=== PATIENT | male | born 1960 | race Caucasian/White ===

== ENCOUNTER 2017-10-29 07:26 | Day surgery (SDC) | payer OTHER ==
[2017-10-29] MEDS ORDERED: LIDOCAINE 4% SOLUTION 50 ML BTL (09:42)
[2017-10-29] MEDS ORDERED: FENTAnyl 50 MCG/ML VIAL (10:30)
[2017-10-29] MEDS ORDERED: MIDAZOLAM 1 MG/ML 2 ML INJ ×2 (10:30)
== END 2017-10-29 10:51 | disposition home or self-care (01) ==
LOC: GIL 07:26
DX: K92.1 Melena (principal); K29.50 Unspecified chronic gastritis without bleeding; I10 Essential (primary) hypertension; E11.9 Type 2 diabetes mellitus without complications
CPT/HCPCS: 43239; 82962; 88305; 88312